=== PATIENT | female | born 1940 | race Caucasian/White ===

== ENCOUNTER 2019-06-04 05:57 | Inpatient (IN) ==
[2019-06-04] MEDS: ONDANSETRON 4 MG/2 ML VIAL IV PRN (08:21)
[2019-06-04] MEDS: SODIUM CHLORIDE 0.9% 1,000 ML IV SCH ×2 (09:04→18:26)
[2019-06-04 09:12] LABS: Basophils % 0.4 % (0.0-0.8); Eosinophils # 0.1 10*3/uL (0.0-0.87); Eosinophils % 0.6 % (0.00-10.9); Hematocrit 35.1 VOL% (35.7-47.0); Hemoglobin 11.7 GM/DL (12.0-16.0); Immature Granulocytes % 0.8 %; Immature Granulocytes Absolute 0.08 #; Lymphocytes # 1.6 10*3/uL (1.4-4.0); Lymphocytes % 15.8 % (21.3-54.2); Mean Corpuscular HGB Conc 33.3 GM/DL (32-36); Mean Corpuscular Volume 90.2 FL (87-102); Mean Platelet Volume 9.4 FL (9.6-12.0); Monocytes % 9.3 % (1.7-12.7); Neutrophils % 73.1 % (38.7-73.9); Platelet Count 255 T/CUMM (130-400); Red Blood Count 3.89 MC/CUMM (3.8-5.5); Red Cell Distribution Width 12.5 % (9.3-17.3); White Blood Count 10.3 T/CUMM (4-12)
[2019-06-04 09:33] LABS: Albumin 3.6 G/DL (3.4-5.0); Bilirubin,Total 0.5 MG/DL (0.2-1.0); Calcium 10.3 MG/DL (8.5-10.1); Osmolality,Calculated 282.5 MOS/KG (273-304); Total Protein 7.9 G/DL (6.4-8.3)
[2019-06-04] MEDS ORDERED: NITROGLYCERIN 2% OINT 1 INCH/GM PACK TOP SCH (18:00)
[2019-06-04] MEDS: MORPHINE 4 MG/1 ML VIAL IV PRN (19:51)
[2019-06-04] MEDS ORDERED: hydrALAZINE 20 MG/1 ML VIAL IV PRN (20:23)
[2019-06-04] MEDS ORDERED: DEXTROSE 50% 25 GM/50 ML VIAL IV PRN (20:29)
[2019-06-04] MEDS ORDERED: GLUCAGON 1 MG VIAL IM PRN (20:29)
[2019-06-05] MEDS: INSULIN REGULAR 100 UNIT/ML SUBCUT SCH ×4 (00:23→18:45)
[2019-06-05] MEDS: SODIUM CHLORIDE 0.9% 1,000 ML IV SCH ×3 (02:40→18:45)
[2019-06-05 05:16] LABS: Basophils % 0.5 % (0.0-0.8); Eosinophils # 0.2 10*3/uL (0.0-0.87); Eosinophils % 2.1 % (0.00-10.9); Hematocrit 33.7 VOL% (35.7-47.0); Hemoglobin 11.4 GM/DL (12.0-16.0); Immature Granulocytes % 0.5 %; Immature Granulocytes Absolute 0.04 #; Lymphocytes # 1.3 10*3/uL (1.4-4.0); Lymphocytes % 15.7 % (21.3-54.2); Mean Corpuscular HGB Conc 33.8 GM/DL (32-36); Mean Corpuscular Volume 91.3 FL (87-102); Mean Platelet Volume 9.8 FL (9.6-12.0); Monocytes % 8.9 % (1.7-12.7); Neutrophils % 72.3 % (38.7-73.9); Platelet Count 249 T/CUMM (130-400); Red Blood Count 3.69 MC/CUMM (3.8-5.5); Red Cell Distribution Width 12.5 % (9.3-17.3); White Blood Count 8.1 T/CUMM (4-12)
[2019-06-05 05:52] LABS: Osmolality,Calculated 285.1 MOS/KG (273-304)
[2019-06-05] MEDS: MORPHINE 4 MG/1 ML VIAL IV PRN ×2 (12:07→17:35)
[2019-06-06 02:54] LABS: Basophils % 0.5 % (0.0-0.8); Eosinophils # 0.2 10*3/uL (0.0-0.87); Eosinophils % 1.9 % (0.00-10.9); Hematocrit 32.9 VOL% (35.7-47.0); Hemoglobin 10.9 GM/DL (12.0-16.0); Immature Granulocytes % 0.5 %; Immature Granulocytes Absolute 0.04 #; Lymphocytes % 12.3 % (21.3-54.2); Mean Corpuscular HGB Conc 33.1 GM/DL (32-36); Mean Corpuscular Volume 91.4 FL (87-102); Mean Platelet Volume 8.7 FL (9.6-12.0); Monocytes % 7.5 % (1.7-12.7); Neutrophils % 77.3 % (38.7-73.9); Platelet Count 226 T/CUMM (130-400); Red Cell Distribution Width 12.3 % (9.3-17.3); White Blood Count 7.7 T/CUMM (4-12)
[2019-06-06] MEDS: SODIUM CHLORIDE 0.9% 1,000 ML IV SCH ×3 (03:16→18:07)
[2019-06-06 03:20] LABS: Calcium 8.5 MG/DL (8.5-10.1); Osmolality,Calculated 284.3 MOS/KG (273-304)
[2019-06-06] MEDS: ONDANSETRON 4 MG/2 ML VIAL IV PRN ×3 (06:09→20:04)
[2019-06-06] MEDS: INSULIN REGULAR 100 UNIT/ML SUBCUT SCH ×4 (06:10→18:08)
[2019-06-06] MEDS: MORPHINE 4 MG/1 ML VIAL IV PRN (09:39)
[2019-06-06] MEDS: POTASSIUM CHLORIDE RIDER 10 MEQ in PREMIX 1 EACH IV PRN ×4 (14:34→18:07)
[2019-06-06] MEDS: cefTRIAXone 1,000 MG in SYRINGE 1 EACH IV SCH (14:40)
[2019-06-06] MEDS: traMADol 50 MG TABLET PO PRN (20:03)
[2019-06-06] MEDS: ACETAMINOPHEN 325 MG TABLET PO PRN (20:03)
[2019-06-07] MEDS: SODIUM CHLORIDE 0.9% 1,000 ML IV SCH ×3 (02:08→14:31)
[2019-06-07 02:27] LABS: Basophils % 0.6 % (0.0-0.8); Eosinophils # 0.1 10*3/uL (0.0-0.87); Eosinophils % 1.4 % (0.00-10.9); Hematocrit 28.9 VOL% (35.7-47.0); Hemoglobin 9.9 GM/DL (12.0-16.0); Immature Granulocytes % 0.6 %; Immature Granulocytes Absolute 0.04 #; Lymphocytes # 1.2 10*3/uL (1.4-4.0); Lymphocytes % 16.9 % (21.3-54.2); Mean Corpuscular HGB Conc 34.3 GM/DL (32-36); Mean Corpuscular Volume 90.6 FL (87-102); Mean Platelet Volume 9.2 FL (9.6-12.0); Monocytes % 9.8 % (1.7-12.7); Neutrophils % 70.7 % (38.7-73.9); Platelet Count 227 T/CUMM (130-400); Red Blood Count 3.19 MC/CUMM (3.8-5.5); Red Cell Distribution Width 12.2 % (9.3-17.3); White Blood Count 7.1 T/CUMM (4-12)
[2019-06-07 02:35] LABS: Osmolality,Calculated 281.3 MOS/KG (273-304)
[2019-06-07] MEDS: POTASSIUM CHLORIDE RIDER 10 MEQ in PREMIX 1 EACH IV PRN ×5 (03:26→09:37)
[2019-06-07] MEDS: traMADol 50 MG TABLET PO PRN ×3 (04:38→20:10)
[2019-06-07] MEDS: ACETAMINOPHEN 325 MG TABLET PO PRN ×3 (04:39→20:10)
[2019-06-07] MEDS: INSULIN REGULAR 100 UNIT/ML SUBCUT SCH ×4 (06:36→18:25)
[2019-06-07] MEDS: ONDANSETRON 4 MG/2 ML VIAL IV PRN ×2 (09:38→20:09)
[2019-06-07] MEDS: cefTRIAXone 1,000 MG in SYRINGE 1 EACH IV SCH (09:38)
[2019-06-07] MEDS: POTASSIUM CHLORIDE INJ 40 MEQ in SODIUM CHLORIDE 0.45% 1,000 ML IV SCH ×2 (11:54→22:07)
[2019-06-08] MEDS: ACETAMINOPHEN 325 MG TABLET PO PRN (06:24)
[2019-06-08] MEDS: INSULIN REGULAR 100 UNIT/ML SUBCUT SCH (06:26)
[2019-06-08 07:59] VITALS: BP 160/89
[2019-06-08 08:07] LABS: Basophils % 0.4 % (0.0-0.8); Eosinophils # 0.3 10*3/uL (0.0-0.87); Eosinophils % 3.7 % (0.00-10.9); Hematocrit 30.7 VOL% (35.7-47.0); Hemoglobin 10.3 GM/DL (12.0-16.0); Immature Granulocytes % 0.6 %; Immature Granulocytes Absolute 0.04 #; Lymphocytes # 1.2 10*3/uL (1.4-4.0); Lymphocytes % 17.8 % (21.3-54.2); Mean Corpuscular HGB Conc 33.6 GM/DL (32-36); Mean Corpuscular Volume 91.1 FL (87-102); Monocytes % 9.2 % (1.7-12.7); Neutrophils % 68.3 % (38.7-73.9); Platelet Count 228 T/CUMM (130-400); Red Blood Count 3.37 MC/CUMM (3.8-5.5); Red Cell Distribution Width 12.3 % (9.3-17.3)
[2019-06-08 08:22] LABS: Calcium 8.2 MG/DL (8.5-10.1)
[2019-06-08] MEDS: POTASSIUM CHLORIDE INJ 40 MEQ in SODIUM CHLORIDE 0.45% 1,000 ML IV SCH (08:44)
[2019-06-08] MEDS: cefTRIAXone 1,000 MG in SYRINGE 1 EACH IV SCH (08:44)
[2019-06-08] MEDS: traMADol 50 MG TABLET PO PRN (10:20)
== END 2019-06-08 13:19 | disposition home or self-care (01) | DRG 445 ==
LOC: N.2E → SUATTDRO 07:24
PROVIDERS: ADMIT Internal Medicine; ATTEND Internal Medicine Cardiovascular Disease